=== PATIENT | female | born 1960 | race African-American/Black ===

== ENCOUNTER 2019-03-08 22:20 | Emergency (ER) | payer MEDICAID ==
[~2019-03-08] VITALS: Ht 165.1 cm; Wt 61.0 kg
[2019-03-08] MEDS ORDERED: IBUPROFEN 600MG TABLET PO STA (23:05)
[2019-03-08] MEDS ORDERED: LORAZEPAM 0.5MG TABLET PO ONE (23:15)
[2019-03-08 23:24] LABS: BASOPHILS % 1.4 % (0.0-2.0); EOSINOPHILS % 1.3 % (0.0-5.0); HEMATOCRIT. 41.1 % (36.0-48.0); HEMOGLOBIN. 14.2 g/dL (12.0-16.0); LYMPHOCYTES % 41.9 % (20.0-50.0); MEAN CORPUSCULAR HEMOGLOBIN 30.8 pg (28.0-32.0); MEAN CORPUSCULAR VOLUME 89.2 fL (81.0-99.0); MEAN PLATELET VOLUME 8.3 fl (7.4-10.4); MONOCYTES % 6.3 % (2.0-8.0); NEUTROPHILS % 49.1 % (40.0-76.0); PLATELET 316 x1000/uL (130-400); RED BLOOD CELL COUNT 4.61 mill/uL (4.2-5.4); RED CELL DISTRIBUTION WIDTH 14.1 % (11.6-14.6)
[2019-03-08 23:26] LABS: CHLORIDE 108 mEq/L (98-107)
[2019-03-08 23:30] LABS: ETHANOL BLOOD < 10 mg/dL
[2019-03-09 06:46] VITALS: BP 118/74
== END 2019-03-09 06:47 | disposition home or self-care (01) ==
LOC: ER 22:24
DX: R07.89 Other chest pain (principal); I10 Essential (primary) hypertension; F17.200 Nicotine dependence, unspecified, uncomplicated; F12.10 Cannabis abuse, uncomplicated; Z88.5 Allergy status to narcotic agent
CPT/HCPCS: 36415; 71045; 80320; 83880; 84484; 93005; 99284; 99406; G0480